=== PATIENT | male | born 1940 | race Caucasian/White ===

== ENCOUNTER → 2022-10-26 12:22 | Outpatient (CLI) | payer MEDICARE, OTHER, SELFPAY ==
--- NOTE | 2022-10-26 12:25 | DI.RAD.S_ITS ---
PROCEDURE: XR HAND RT MIN 3V INDICATIONS: proximal 4th metacarpal tenderness TECHNIQUE: 3 views of the hand(s) acquired. COMPARISON: None. FINDINGS: Bones: No fractures or dislocations. Carpal bones are normally aligned. No suspicious bony lesions. Soft tissues: No suspicious soft tissue calcifications. IMPRESSION: Normal right hand Dictated by: Lasha Obrien M.D. on 10/26/2022 at 13:17 Approved by: Lasha Obrien M.D. on 10/26/2022 at 13:21
--- NOTE | 2022-10-26 12:25 | DI.RAD.S_ITS ---
PROCEDURE: XR WRIST RT MIN 3V INDICATIONS: proximal 4th metacarpal tenderness TECHNIQUE: 4 views of the wrist were acquired. COMPARISON: None. FINDINGS: Bones: No fractures or dislocations. No suspicious bony lesions. Scaphoid view: No fracture Soft tissues: No suspicious soft tissue calcifications. IMPRESSION: Normal right wrist Dictated by: Lasha Orbien M.D. on 10/26/2022 at 13:21 Approved by: Lasha Obrien M.D. on 10/26/2022 at 13:23
== END ==
PROVIDERS: Referring Provider Physician Assistant; Visit Provider Physician Assistant
DX: M79.641 Pain in right hand (principal); M25.531 Pain in right wrist
CPT/HCPCS: 73110; 73130